=== PATIENT | female | born 2000 | race Caucasian/White ===

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

== ENCOUNTER 2022-11-23 20:25 | Observation (INO) | payer OTHER, SELFPAY ==
--- NOTE | ~2022-11-23 | US_ITS ---
EXAMINATION: US pelvic complete DATE: 11/23/2022 22:55 INDICATION: Pelvic pain. TECHNIQUE: Multiple transabdominal sonographic images of the pelvis were obtained. COMPARISON: Ultrasound 08/25/2021 FINDINGS: The uterus measures 7.4 x 3.5 x 4.5 cm. There is no free fluid in the pelvis. The endometrial complex measures 6 mm in thickness. There is an intrauterine device in expected position. The right ovary me asures 3.1 x 3.3 x 3.6 cm. The left ovary measures 3.1 x 2.2 x 2.9 cm. There is normal vascular flow in the ovaries. IMPRESSION: 1. Intrauterine device in expected position. Reviewed, dictated and finalized at location E.
--- NOTE | ~2022-11-23 | US_ITS ---
Pelvic ultrasound. Clinical History: Ovarian cyst, history of pneumoperitoneum Technique: Realtime transabdominal and transvaginal scanning of the pelvis was performed. Color flow Doppler and Doppler spectral analysis were performed. Findings: The uterus is anteverted. The endometrial stripe has a thickness of 5 mm. IUD is in satisf actory position. No focal mass is identified. The right ovary measures 2.9 x 4.7 x 2.8 cm. Suggestion of heterogeneous area within the right ovary measuring approximately 2 cm in diameter. The left ovary measures 3.0 x 1.8 x 2.3 cm. No significant left ovarian or adnexal mass is seen. Vascular flow present in both ovaries on Doppler spectral analysis. There is moderate amount of mildly complex free fluid in the pelvis. Impression: Moderate amount of mildly complex free fluid in the pelvis, consistent with hemoperitoneum as seen on CT performed earlier today. 2 cm heterogeneous area within the right ovary. This could reflect a small dermoid or perhaps remnant s of a collapsed/ruptured cyst. IUD in place. Reviewed, dictated and finalized at location . Impression: Moderate amount of mildly complex free fluid in the pelvis, consistent with hem operitoneum as seen on CT performed earlier today. 2 cm heterogeneous area within the right ovary. This could reflect a small derm oid or perhaps remnants of a collapsed/ruptured cyst. IUD in place.
--- NOTE | ~2022-11-23 | CT_ITS ---
CT of the Abdomen and Pelvis: Indication: Abdominal pain Technique: 2.5 mm axial scans were obtained through the abdomen and pelvis following intravenous adm inistration of 100 cc of Omnipaque 350. Dose reduction technique was used on this scan by utilizing a utomated exposure control and iterative reconstruction technique. The dose-length product (DLP) was 6 15.93 mGy-cm. Findings: Scans through the lung bases are unremarkable. The liver, spleen, pancreas, gallbladder, adrenals and kidneys are within normal limits. No evidence of aortic aneurysm. No lymphadenopathy. No bowel obstruction or bowel wall thickening. There is no evidence to suggest acute appendicitis. Images through the pelvis were performed. Urinary bladder unremarkable. IUD in place. There is hemorr hagic ascites in the pelvis with small amount extending into the paracolic gutters and into the infra hepatic region. Impression: Hemorrhagic ascites in the pelvis, with mild extension into the paracolic gutters and infrahepatic re gion. Findings could reflect ruptured hemorrhagic ovarian cyst. IUD in place. Reviewed, dictated and finalized at location . Impression: Hemorrhagic ascites in the pelvis, with mild extension into the paracolic gutte rs and infrahepatic region. Findings could reflect ruptured hemorrhagic ovarian cyst. IUD in place.
[2022-11-23 20:27] VITALS: BP 146/94; PULSE 114; RESP 18; TEMP 36.7; O2SAT 100
[2022-11-23 23:45] LABS: Basophils Percent Auto 0.3 % (0.2-1.2); Eosinophils Percent Auto 0.4 % (0-4.4); Hematocrit 38.8 % (37.0-47.0); Hemoglobin 13.2 g/dL (12.0-15.0); Immature Granulocyte Absolute 0.03 K/mm3 (0.00-0.031); Immature Granulocyte Percent A 0.3 % (0-0.5); Lymphocytes Absolute Auto 2.03 K/mm3 (0.9-3.2); Lymphocytes Percent Auto 18.2 % (18.3-44.2); Mean Corpuscular Hemoglobin 28.8 pg (26-34); Mean Corpuscular Volume 84.5 fl (80-100); Mean Platelet Volume 9.6 fl (7.4-10.4); Monocytes Absolute Auto 0.6 K/mm3 (0.1-0.6); Monocytes Percent Auto 5.6 % (2.6-8.5); Neutrophils Absolute Auto 8.4 K/mm3 (1.3-6.7); Neutrophils Percent Auto 75.2 % (45.5-73.1); Platelet Count Result 247 k/mm3 (150-375); Red Blood Count 4.59 M/mm3 (4.2-5.4); Red Cell Distribution Width 12.2 % (11.5-14.5); White Blood Count 11.1 K/mm3 (4.5-10.0)
[2022-11-23 23:53] LABS: Add Urine Microscopic? YES; Appearance Urine Clear (Clear); Bacteria Urine 1+ /hpf; Bilirubin Urine Negative (Negative); Blood Urine Negative (Negative); Color Urine Yellow (Yellow); Glucose Urine UA Negative (Negative); Ketones Urine Negative (Negative); Leukocyte Esterase Ur Trace LEU/UL (Negative); Nitrate Urine Negative (Negative); Protein Urine Negative (Negative); RBC Urine 0-2 /hpf (0-2); Specific Grav Ur 1.005 (1.001-1.035); Squamous Epithelial Cell Urine None seen /hpf (Few); Urobilinogen Urine 0.2 mg/dL (<2.0); WBC Urine 0-5 /hpf; pH Urine 5.5 (5.0-9.0)
[2022-11-23 23:54] LABS: Alanine Aminotransferase 37 U/L (6-35); Albumin Level 4.3 g/dL (3.5-5.1); Alkaline Phosphatase 96 U/L (38-126); Anion Gap 5 mmol/L (8-16); Aspartate Amino Transferase 33 U/L (14-36); Bilirubin,Total 0.4 mg/dL (0.2-1.3); Blood Urea Nitrogen 9 mg/dL (7-17); Calcium 9.1 mg/dL (8.4-10.2); Carbon Dioxide 25 mmol/L (22-30); Chloride 105 mmol/L (98-107); Estimated CRCL calculation 109 ml/min; Estimated Glomerular Filt Rate > 60; Glucose 97 mg/dL (65-110); Lipase 39 U/L (23-300); Potassium 3.7 mmol/L (3.4-5.0); Sodium 135 mmol/L (137-145)
[2022-11-24] VITALS (73 sets, daily range): BP systolic 104–141; BP diastolic 43–84; PULSE 67–115; RESP 14–20; TEMP 36.4–36.8; O2SAT 86–100; BMI 31.1; BMI 33.0
[2022-11-24] MEDS: MORPHINE SULFATE (*CRX) 4 MG/ML INJ IV PUSH ×2 (00:43→04:05)
[2022-11-24] MEDS: ONDANSETRON INJ 4 MG/2 ML VIAL IV PUSH (00:43)
--- NOTE | 2022-11-24 01:12 | ED.ABDPAIN ---
HPI - Abdominal Pain General Chief Complaint: Abdominal Pain <MISHA Arredondo Last Filed: 11/24/22 03:06> Stated Complaint: abd pain after intercourse <MISHA Arredondo Last Filed: 11/24/22 03:06> Time Seen by Provider: 11/23/22 22:39 <MISHA Arredondo Last Filed: 11/24/22 03:06> Source: patient <MISHA Arredondo Filed: 11/24/22 03:06> Mode of arrival: ambulatory <MISHA Arredondo Filed: 11/24/22 03:06> Limitations: no limitations <MISHA Arredondo Filed: 11/24/22 03:06> History of Present Illness HPI narrative: Patient is a 22-year-old female who presents the ED with report of lower abdominal pain. Patient reports she had sexual intercourse with her significant other this evening. She experienced discomfort during intercourse, but complained of significant pain throughout her lower abdomen afterwards. She denies previous issues with dyspareunia. She currently has an IUD in place and is concerned it may have dislodged. She tried taking ibuprofen at home without relief. She also reports some nausea, denies vomiting. Denies any abnormal vaginal bleeding. Denies urinary symptoms. <MISHA Arredondo Last Filed: 11/24/22 03:06> Related Data Home Medications: Home Medications Medication Instructions Recorded Confirmed levocetirizine [Xyzal] PO PRN 09/09/21 levonorgestrel 14 mcg/24 hrs (3 1 device intrauterine ONCE 10/28/21 yrs) 13.5 mg intrauterine device (Melva) <MISHA Arredondo Last Filed: 11/24/22 03:06> Allergies/Adverse Reactions: Allergies Allergy/AdvReac Type Severity Reaction Status Date / Time No Known Allergies Allergy Verified 11/23/22 22:18 <MISHA Arredondo Last Filed: 11/24/22 03:06> Review of Systems Review of Systems: CONSTITUTIONAL: Denies fever, chills, or sweats. CARDIOVASCULAR: Denies chest pain. RESPIRATORY: Denies dyspnea. GASTROINTESTINAL: See HPI. GENITOURINARY: See HPI. MUSCULOSKELETAL: Denies back pain, joint pain, or myalgia. <Tana Butterfield PA-C - Last Filed: 11/24/22 03:06> All systems reviewed & are unremarkable except as noted in HPI and below <Tana Butterfield PA-C - Last Filed: 11/24/22 03:06> [facility] Past Medical History Medical History: Medical History Encounter for IUD insertion melva 03/2020 <Tana Butterfield PA-C - Last Filed: 11/24/22 03:06> Family History Family History: Family History (Updated 09/09/21 @ 13:13 by Marlin Ramirez, [facility]) Mother Melanoma Father Heart disease Grandparent Carcinoma of colon <Tana Butterfield PA-C - Last Filed: 11/24/22 03:06> Social History Social History: Social History Smoking status: Never smoker Alcohol intake: never Substance use: never <Tana Butterfield PA-C - Last Filed: 11/24/22 03:06> Exam Narrative: GENERAL: Well appearing, obese with BMI of 32.9, non-toxic, in no acute distress. HEAD: Normocephalic, atraumatic. NECK: Supple. No adenopathy, no masses. RESPIRATORY: Airway patent, respirations nonlabored. Clear to auscultation bilaterally, no rales, rhonchi, wheezing. CARDIOVASCULAR: Regular rate and rhythm without murmurs, rubs, or gallops. Peripheral pulses 2+ and equal bilaterally. ABDOMINAL: Soft, diffuse tenderness throughout suprapubic region and right lower abdomen, nondistended, no hepatosplenomegaly. Normoactive BS. MUSCULOSKELETAL: Moves all extremities. Strength/ROM intact without gross deformities. SKIN: Warm, dry, normal color. No rashes. NEURO: A&O X3. Speech clear. Cranial nerves II-XII grossly intact. Steady gait. No ataxic movements. PSYCHIATRIC: Anxious, tearful. Normal interaction. <Tana Butterfield PA-C - Last Filed: 11/24/22
[2022-11-24] MEDS: HYDROmorphone HCL INJ (*CRX) 1 MG/ML SYR IV PUSH ×2 (05:08→14:56)
[2022-11-24 05:41] LABS: Hematocrit 36.8 % (37.0-47.0); Hemoglobin 12.4 g/dL (12.0-15.0)
--- NOTE | 2022-11-24 06:52 | OBADM ---
This patient, Sina Pace, admitted to the OB room 112 for observation. Patient/family oriented to hospital policies and general routines including ID bracelet, bed and alarms, visiting hours, pain management, procedures, bathroom and other care routines, personal items, smoking policy, room service/diet, and visiting hours. Patient/Family are encouraged to report perceived risks to care and to ask questions if they do not understand what they are told or what they should do.
--- NOTE | 2022-11-24 07:05 | PC.NURSE ---
Dr. Connors in to see and assess pt. Discussed wanting to watch pt's H&H and VS to monitor for abdominal bleeding and determine need for surgery. Additional orders received.
[2022-11-24] MEDS: SODIUM CHLORIDE 0.9% IV 1,000 ML 125 ML IV CONT ×2 (07:20→16:30)
[2022-11-24] MEDS: HYDROmorphone HCL INJ (*CRX) 1 MG/ML SYR 0.5 MG IV PUSH ×4 (07:54→19:30)
--- NOTE | 2022-11-24 07:54 | PC.NURSE ---
Pt medicated prior to being walked to bathroom. Pt unable to relax enough to void. Pt to U/S per wheelchair.
--- NOTE | 2022-11-24 07:58 | PM.IMHP ---
H&P: HPI History of Present Illness Date/Time: 11/24/22 07:58 Chief Complaint: abdominal pain Narrative: Sina is a 22yo G0, who presented to the ER with acute abdominal pain after intercourse last night. She has a Bina IUD in place since 03/2020. She thought the pain was from her IUD being displaced. She had an US which showed the IUD in the correct location and no cysts. She was monitored in the ED and suddenly developed sharp abdominal pain. CT scan was performed and showed a significant amount of hemoperitoneum concerning for hemorrhagic cyst. Her vitals remained stable; H/H dropped approximately 1 point in 4 hours. She was admitted for pain control and possible surgery. This morning she reports the pain is still severe; 6/10 (had dilaudid about 2 hours ago). No vaginal bleeding, discharge. No blood in stool/urine. If she needs surgery, she would like her IUD removed as well. Review of Systems Constitutional: Constitutional: Denies chills, Denies fever(s) and Denies headache(s) Eyes: Eyes: Denies change in vision ENT: Denies dizziness and Denies headache(s) Cardiovascular: Cardiovascular: Denies chest pain, Denies dyspnea and Reports orthopnea (from pain) Respiratory: Respiratory: Denies cough and Denies dyspnea Gastrointestinal: Gastrointestinal: Reports abdominal pain, Denies change in stool character and Reports constipation Genitourinary: Genitourinary: Denies abnormal menses, Reports pelvic pain, Denies vaginal discharge, Denies vaginal odor and Denies vaginal pruritus Neurologic: Denies dizziness and Denies headache(s) Psychiatric: Psychiatric: Denies anxiety and Denies depression [facility] Past Medical History Medical History Encounter for IUD insertion bina 03/2020 Family History Family History Mother Melanoma Father Heart disease Grandparent Carcinoma of colon Social History Social History Smoking status: Never smoker Alcohol intake: never Substance use: never Lack of Transportation: No Lack of Food: Never True Current Housing: I Have Housing Concerned About Future Housing: No Difficulty Paying Gas/Electric Bills: No Difficulty Paying for Meds: No Currently Unemployed: No Education: High School Diploma/GED Difficulty w/ Childcare or Family Care: No Spiritual care concerns: No Meds Home Medications and Allergies Home Medications Medication Instructions Recorded Confirmed Type diphenhydramine HCl 25 mg capsule 25 mg PO HS PRN Sleep 11/24/22 11/24/22 History (Benadryl) ibuprofen 600 mg tablet 600 mg PO Q6H PRN Pain 11/24/22 11/24/22 History Allergies Allergy/AdvReac Type Severity Reaction Status Date / Time No Known Allergies Allergy Verified 11/23/22 22:18 Vital Signs Vital Signs - 24 hr 11/23/22 20:27 11/24/22 02:26 11/24/22 05:38 Temperature 98.1 F Pulse Rate 114 H 90 67 Respiratory Rate 18 16 15 Blood Pressure 146/94 H 127/65 117/84 Pulse Oximetry 100 99 98 Oxygen Delivery Room Air 11/24/22 06:53 11/24/22 06:55 Temperature Pulse Rate 88 Respiratory Rate Blood Pressure 115/78 Pulse Oximetry 100 Oxygen Delivery Exam Const: General: cooperative, healthy appearing, acute distress mild and uncomfortable Orientation/consciousness: patient oriented x3 Resp: Effort & Inspection: normal respiratory effort Auscultation: clear to auscultation bilaterally Cardio: Rate: regular rate GI: Inspection: distended GI Palp: Yes abdominal tenderness, Yes Firmness to palpation present (GI) (/taut) and Yes Guarding due to palpation present (GI) (voluntary) Auscultation: normal bowel sounds Skin: General skin exam: normal color Neuro: General: patient oriented x3 Extrem: General: normal to inspection Psych: Appearance: grossly normal Affect: normal a
--- NOTE | 2022-11-24 08:40 | PC.NURSE ---
Pt back from U/S. IV fluids resumed. Pt states she voided while in U/S department.
[2022-11-24 09:58] LABS: Hematocrit 35.3 % (37.0-47.0); Hemoglobin 11.9 g/dL (12.0-15.0)
--- NOTE | 2022-11-24 15:07 | WPDHPUPDATE1 ---
History and Physical Update Update Date/Time: 11/24/22 15:07 History and Physical has been reviewed, including an updated exam of the patient. There are NO changes in the patient's condition. Risks, benefits, and alternatives have been discussed and questions answered. Patient agrees to proceed with ?diagnostic laparoscopic, evacuation of hemoperitoneum, possible cystectomy and IUD removal.
--- NOTE | 2022-11-24 16:30 | PC.NURSE ---
Changed to anesthesia tubing when new bag of NS hung. Sequential hose applied to legs in anticipation of surgery.
--- NOTE | 2022-11-24 16:45 | PC.NURSE ---
Pt assisted up to void and then onto stretcher to pre-op area. Pt's father and boyfriend went with pt. Family has her jewelry.
[2022-11-24] MEDS: LACTATED RINGERS 1,000 ML 30 ML IV CONT ×2 (17:00→18:52)
--- NOTE | 2022-11-24 17:22 | WPDANESEPPF ---
Anes - Initial Pre Proc Eval Procedure: Operation Date: 11/24/22 16:00 Proposed Procedures p Diagnostic Laparoscopy, Evacuation Hemoperitoneum,Possible Unilateral Ovarian Cystectomy - Estella Connors MD Date/Time: 11/24/22 17:22 Surgeon: Estella Connors MD Pre Op Diagnosis: Hemoperitoneum/Ruptured Ovarian Cyst Patient Data Age: 22 Gender: F Height: 1.57 m Weight: 82 kg Last Vital Signs Temp 36.8 C 11/24/22 12:04 Pulse 96 11/24/22 16:39 Resp 18 11/24/22 12:04 BP 125/56 L 11/24/22 16:39 Pulse Ox 99 11/24/22 16:39 O2 Del Method Room Air 11/24/22 06:52 Allergies Allergy/AdvReac Type Severity Reaction Status Date / Time No Known Allergies Allergy Verified 11/23/22 22:18 Home Medications Medication Instructions Recorded Confirmed Type diphenhydramine HCl 25 mg capsule 25 mg PO HS PRN Sleep 11/24/22 11/24/22 History (Benadryl) ibuprofen 600 mg tablet 600 mg PO Q6H PRN Pain 11/24/22 11/24/22 History Laboratory Tests 11/23/22 11/24/22 11/24/22 23:38 05:32 09:44 WBC 11.1 H K/mm3 (4.5-10.0) RBC 4.59 M/mm3 (4.2-5.4) Hgb 13.2 g/dL 12.4 g/dL 11.9 L g/dL (12.0-15.0) (12.0-15.0) (12.0-15.0) Hct 38.8 % 36.8 L % 35.3 L % (37.0-47.0) (37.0-47.0) (37.0-47.0) MCV 84.5 fl (80-100) MCH 28.8 pg (26-34) MCHC 34.0 g/dl (32-36) RDW 12.2 % (11.5-14.5) Plt Count 247 k/mm3 (150-375) MPV 9.6 fl (7.4-10.4) Immature Gran % (Auto) 0.3 % (0-0.5) Neut % (Auto) 75.2 H % (45.5-73.1) Lymph % (Auto) 18.2 L % (18.3-44.2) [place] % (Auto) 5.6 % (2.6-8.5) Eos % (Auto) 0.4 % (0-4.4) Baso % (Auto) 0.3 % (0.2-1.2) Lymph # (Auto) 2.03 K/mm3 (0.9-3.2) [place] # (Auto) 0.6 K/mm3 (0.1-0.6) Eos # (Auto) 0.0 K/mm3 (0-0.3) Baso # (Auto) 0.0 K/mm3 (0.0-0.1) Abs Immat Gran (auto) 0.03 K/mm3 (0.00-0.031) Absolute Neuts (auto) 8.4 H K/mm3 (1.3-6.7) Absolute Nucleated RBC 0.0 K/mm3 (0.0-0.012) Nucleated RBC % 0.0 % (0.0-0.2) Sodium 135 L mmol/L (137-145) Potassium 3.7 mmol/L (3.4-5.0) Chloride 105 mmol/L (98-107) Carbon Dioxide 25 mmol/L (22-30) Anion Gap 5 L mmol/L (8-16) BUN 9 mg/dL (7-17) Creatinine 0.70 mg/dL (0.7-1.0) Estim Creat Clear Calc 109 ml/min Estimated GFR > 60 (59 - ) Glucose 97 mg/dL (65-110) Calcium 9.1 mg/dL (8.4-10.2) Total Bilirubin 0.4 mg/dL (0.2-1.3) AST 33 U/L (14-36) ALT 37 H U/L (6-35) Alkaline Phosphatase 96 U/L (38-126) Total Protein 7.0 g/dL (6.3-8.2) Albumin 4.3 g/dL (3.5-5.1) Lipase 39 U/L (23-300) Urine Color Yellow (Yellow) Urine Appearance Clear (Clear) Urine pH 5.5 (5.0-9.0) Ur Specific [place] 1.005 (1.001-1.035) Urine Protein Negative mg/dL (Negative) Urine Glucose (UA) Negative mg/dL (Negative) Urine Ketones Negative mg/dL (Negative) Ur Blood (Man) Negative (Negative) Urine Nitrate Negative (Negative) Urine Bilirubin Negative (Negative) Urine Urobilinogen 0.2 mg/dL (<2.0) Leukocyte Esterase Rfl Trace H SHRUTHI/UL (Negative) Urine RBC 0-2 /hpf (0-2) Urine WBC 0-5 /hpf Ur Squamous Epith Cells None seen /hpf (Few) Urine Bacteria 1+ H /hpf Urine Casts 3-5 Blood Type O Positive Antibody Screen Negative Patient hx anesthesia problems: none Family hx anesthesia problems: none Results Review: All pre-operative results and documents have been reviewed as part of the pre-o
--- NOTE | 2022-11-24 18:50 | W.PM.PROC2 ---
Procedure Note - Detailed Date of Procedure 11/24/22 Pre-op Diagnosis Hemoperitoneum/Ruptured Ovarian Cyst Post-op Diagnosis Same Procedure Performed Diagnostic laparoscopy, evacuation of hemoperitoneum, IUD removal Surgeon Estella Connors MD Food Service Director Manjeet Anesthesia General and Local (20cc of 0.25% marcaine w/ epi) Findings IUD strings visualized and IUD removed using ring forceps without issue. IUD was examined by OR staff and found to be removed in whole and was discarded. Diagnostic laparoscopy w/ significant amount of hemoperitoneum, 1000cc removed in total. Uterus, bilateral fallopian tubes and left ovary found to be normal. Right ovary with remnants of cyst; no active bleeding noted. Description of Procedure Sina was taken to the operating room where she was placed under general endotracheal anesthesia without complications. She was then prepped and draped in the usual sterile fashion in the dorsal lithotomy position with her legs in low Rogerio stirrups and her arms tucked at her side with a strap over her chest. A time-out was performed and no preoperative antibiotics were indicated. My attention was turned down below where her bladder was drained via straight catheterization. A bivalve speculum was then placed within the vagina where the cervix was easily visualized. The IUD strings were easily identified and grasped with ring forceps. The IUD was removed in whole (examined by OR team) and discarded. The anterior lip of the cervix was grasped with a single-tooth tenaculum, the uterus was sounded to 8cm, and a diagnostic uterine manipulator was placed without complications. My gloves were changed and my attention was turned to her abdomen. An umbilical incision was made, and a 5 mm trocar was placed under direct visualization without complications. Once intra-abdominal placement was confirmed (significant hemoperitoneum was immediately noted), the abdomen was insufflated with carbon dioxide gas. She was then placed in Trendelenburg and a 10 mm port was placed in the left lower quadrant under direct visualization without complications. The above findings were noted. The hemoperitoneum was removed using the large suction device. The pelvis and upper abdomen were irrigated and all fluid and blood was removed from the abdomen. The right ovary was examined in detail; the remnant of cyst was noted, but no active bleeding was noted and decision was made to not proceed with cystectomy. Good hemostasis was noted. All instruments were removed from the abdomen. The 10mm fascial incision was reapproximated using 0-Vicryl figure of eight stitch and no loss of gas was noted. The insufflation was released and the other trocar was removed. The two laparoscopic incision sites were reapproximated using 4-0 Monocryl and covered with Dermabond. The incisions were then infiltrated using 0.25% Marcaine with epi. The uterine manipulator was removed. Sponge, lap, instrument, and needle counts were correct at the end of the procedure. Patient was awoken from general anesthesia and taken to recovery with plans of overnight stay with plans of discharge home first thing in the morning. Estimated Blood Loss 10 (+ 1000cc of hemoperitoneum ) IV Fluids 1,000 Urine Output 100 Pathology None sent Complications No immediate complications Condition Stable Disposition Floor [facility] Billing Surgery - Charge Forward: Surgery Billing
[2022-11-24] MEDS: fentaNYL CITRATE INJ (*CRX) 100 MCG/2 ML VIAL 25 MCG IV PUSH ×8 (19:10→19:24)
[2022-11-24] MEDS: KETOROLAC 30 MG/ML VIAL (*BKC) IV PUSH (22:09)
[2022-11-25] VITALS (31 sets, daily range): BP systolic 95–109; BP diastolic 47–66; PULSE 67–103; RESP 16; TEMP 36.8–37.1; O2SAT 97–100
--- NOTE | 2022-11-25 00:17 | PC.NURSE ---
Pt sleeping O2 remaining at 98%
[2022-11-25] MEDS: KETOROLAC 30 MG/ML VIAL (*BKC) IV PUSH (04:05)
[2022-11-25 04:14] LABS: Basophils Percent Auto 0.1 % (0.2-1.2); Hematocrit 29.7 % (37.0-47.0); Hemoglobin 10.3 g/dL (12.0-15.0); Immature Granulocyte Absolute 0.02 K/mm3 (0.00-0.031); Immature Granulocyte Percent A 0.3 % (0-0.5); Lymphocytes Absolute Auto 0.68 K/mm3 (0.9-3.2); Lymphocytes Percent Auto 9.8 % (18.3-44.2); Mean Corpuscular HGB Conc 34.7 g/dl (32-36); Mean Corpuscular Hemoglobin 29.3 pg (26-34); Mean Corpuscular Volume 84.6 fl (80-100); Monocytes Absolute Auto 0.3 K/mm3 (0.1-0.6); Monocytes Percent Auto 3.9 % (2.6-8.5); Neutrophils Percent Auto 85.9 % (45.5-73.1); Platelet Count Result 190 k/mm3 (150-375); Red Blood Count 3.51 M/mm3 (4.2-5.4); Red Cell Distribution Width 12.2 % (11.5-14.5)
[2022-11-25 04:28] LABS: Anion Gap 4 mmol/L (8-16); Blood Urea Nitrogen 7 mg/dL (7-17); Calcium 8.5 mg/dL (8.4-10.2); Carbon Dioxide 23 mmol/L (22-30); Chloride 107 mmol/L (98-107); Estimated CRCL calculation 126 ml/min; Estimated Glomerular Filt Rate > 60; Glucose 110 mg/dL (65-110); Potassium 4.2 mmol/L (3.4-5.0); Sodium 134 mmol/L (137-145)
--- NOTE | 2022-11-25 07:17 | PM.GYNPNOP ---
MUSIC LEADER - A/P Assessment and plan (1) Hemorrhagic cyst: Status: Acute (2) Hemoperitoneum: Code(s): K66.1 - Hemoperitoneum Status: Acute Postoperative Procedures: Procedures Operation Date: 11/24/22 16:00 Actual Procedure Side Surgeon p Diagnostic Laparoscopy, Evacuation Hemoperitoneum, Removal of Intrauterine Device Not Applicable Estella Connors MD Postoperative day: 1 Postoperative status: doing well Postoperative plan: routine post-op care and discharge (today; pelvic rest, no heavy lifting x 2wks. ) Time Spent With Patient Time: Total time spent is greater than 50% in coordination of care (as documented) at patient's floor/unit and/or counseling patient: Time with patient: less than 15 minutes MUSIC LEADER- PN:Subj Post-Op Subjective Date/time seen: 11/25/22 07:17 Interval history: POD#1 Sina reports doing great today. No issues overnight. Her pain has been controlled overnight with toradol. She has tolerated liquids; plans to order breakfast. She denies any vaginal bleeding. She has voided. She has passed flatus. She has ambulated and denies any symptoms of anemia. Review of Systems Review of Systems: All systems reviewed & are unremarkable except as noted in HPI and below (HPI) Constitutional: Constitutional: Denies chills, Denies fever(s) and Denies headache(s) Eyes: Eyes: Denies change in vision ENT: Denies dizziness and Denies headache(s) Cardiovascular: Cardiovascular: Denies chest pain and Denies rapid heart rate Respiratory: Respiratory: Denies cough Genitourinary: Genitourinary: Denies abnormal vaginal bleeding Neurologic: Denies dizziness and Denies headache(s) Exam Const: General: cooperative, comfortable, no acute distress and obese Orientation/consciousness: patient oriented x3 Resp: Effort & Inspection: normal respiratory effort Auscultation: clear to auscultation bilaterally Cardio: Rate: regular rate GI: Inspection: normal to inspection and incision (2 LSC incisions intact/covered w/ dermabond) GI Palp: Yes abdominal tenderness (appropriate) and Yes Soft to palpation Auscultation: normal bowel sounds : Other: normal bleeding on pad Skin: General skin exam: normal color Neuro: General: patient oriented x3 Psych: Appearance: grossly normal Affect: normal affect Attitude: cooperative MUSIC LEADER - PN: Obj Data Vital Signs Vital Signs: Vital Signs - 24 hr 11/24/22 08:41 11/24/22 08:46 11/24/22 08:51 Temperature Pulse Rate 93 Respiratory Rate Blood Pressure 104/56 L Pulse Oximetry 99 100 99 Oxygen Delivery Oxygen Flow Rate 11/24/22 08:56 11/24/22 09:01 11/24/22 09:06 Temperature Pulse Rate Respiratory Rate Blood Pressure Pulse Oximetry 100 100 100 Oxygen Delivery Oxygen Flow Rate 11/24/22 12:03 11/24/22 12:04 11/24/22 12:11 Temperature Pulse Rate 93 Respiratory Rate Blood Pressure 114/66 Pulse Oximetry 100 100 Oxygen Delivery Oxygen Flow Rate 11/24/22 14:39 11/24/22 16:39 11/24/22 20:08 Temperature Pulse Rate 81 96 Respiratory Rate Blood Pressure 110/58 L 125/56 L Pulse Oximetry 100 99 99 Oxygen Delivery Oxygen Flow Rate 11/24/22 20:09 11/24/22 20:18 11/24/22 20:23 Temperature Pulse Rate 84 Respiratory Rate Blood Pressure 116/65 Pulse Oximetry 100 100 Oxygen Delivery Oxygen Flow Rate 11/24/22 20:28 11/24/22 20:30 11/24/22 20:33 Temperature Pulse Rate 84 Respiratory Rate Blood Pressure 113/56 L Pulse Oximetry 100 100 Oxygen Delivery Oxygen Flow Rate 11/24/22 20:38 11/24/22 20:43 11/24/22 20:45 Temperature Pulse Rate 115 H Respiratory Rate Blood Pressure 125/43 L Pulse Oximetry 100 100 Oxygen Delivery Oxygen Flow Rate 11/24/22 20:48 11/24/22 20:53 11/24/22 20:58 Temperature Pulse Rate Respiratory Rate Blood Pressure Pulse Oximetry 100 100 100 Oxygen
--- NOTE | 2022-11-26 14:14 | PM.DS ---
DS: Admitting Diagnosis Discharge Date 11/25/22 Admitting Diagnosis Abdominal pain Hemorrhagic cyst Hemoperitoneum DS: Discharge Diagnosis Discharge Diagnosis (1) Hemorrhagic cyst: Status: Acute (2) Hemoperitoneum: Code(s): K66.1 - Hemoperitoneum Status: Acute (3) S/P laparoscopic surgery: Code(s): Z98.890 - Other specified postprocedural states Status: Acute (4) Encounter for IUD removal: Code(s): Z30.432 - Encounter for removal of intrauterine contraceptive device Status: Acute DS: Summary Hospital Course Hospital Course: Sina presented to the ER for acute abdominal pain after intercourse. She assumed that the pain was from her IUD and concerned it could have moved. [employer] US was normal, but kept for pain control. Her abdominal pain severely worsened and CT scan showed hemoperitoneum. She was kept inpatient for pain control and serial H/H. [employer] US was repeat and did show a right ovarian cyst and significant amount of free fluid. Her vital signs and H/H remained stable, but her pain was severe and continued to require multiple doses of IV Dilaudid. She was counseled and on recommendation for diagnostic laparoscopic, removal of hemoperitoneum, possible cystectomy. She agreed to surgery, but also wanted to have her IUD removed. Surgery was performed without issue; diagnostic laparoscopy with evacuation of hemoperitoneum and IUD removal. She was kept overnight and her pain resolved; only needed toradol. By the following morning, she was tolerating regular diet, voiding, and ambulating without symptoms of anemia. Vitals remained stable and blood work was once again repeated and appropriate. She was discharged home with strict lifting precautions, pelvic rest, and to follow up in clinic. Status at Discharge Functional status at discharge: independent ambulation Overall status at discharge: patient is back to baseline Time Spent with Patient Time attestation: Total time spent providing and/or coordinating discharge services: Time spent: Less than 30 minutes Exam Const: General: cooperative, healthy appearing, comfortable and no acute distress Resp: Effort & Inspection: normal respiratory effort Auscultation: clear to auscultation bilaterally Cardio: Rate: regular rate GI: Inspection: incision (x2) GI Palp: Yes Soft to palpation and Yes Tenderness to palpation present (GI) (appropriate) Auscultation: normal bowel sounds Skin: General skin exam: normal color Neuro: General: patient oriented x3 Extrem: General: normal to inspection Psych: Appearance: grossly normal Affect: normal affect Attitude: cooperative Discharge Plan Discharge Attending physician on discharge: Estella Connors Consulting providers: Tana Butterfield; Kervin Juan; Dagoberto Pichardo V.; Kelvin Abel Discharging Clinician: Estella Connors Anticipated Discharge Date/Time: 11/25/22 08:00 Patient Disposition: Home, Self-Care Activity: may shower and pelvic rest Diet: regular Discharge Instructions: Pelvic rest (nothing in the vagina) x 2wks. No driving x 1wk. Can shower. No heavy lifting (>15lbs) x 2wks. Patient Instructions: Antibiotic Form Stand Alone Forms: General Discharge Information Follow-up/Referrals: Estella Connors MD [Physician] - 2 Weeks Manjeet Serrano MD [Primary Care Provider] - Discharge Medications: New ibuprofen 800 mg tablet 800 mg PO TID Qty: 30 0RF docusate sodium [Colace] 100 mg capsule 100 mg PO BID Qty: 60 0RF hydrocodone-acetaminophen 5-325 mg tablet 1 tablet PO Q4H PRN (Reason: pain) Qty: 14 0RF Discontinued diphenhydramine HCl [Benadryl] 25 mg Capsule 25 mg PO HS PRN (Reason: Sleep) ibuprofen [Motrin] 600 mg Tablet 600 mg PO Q6H PRN (Reason: Pain) Date of admission: 11/24/22 05:04 Primary Care Provider: Manjeet Serrano Admitting Provider: Estella Connors Attending physicia
== END 2022-11-25 10:45 | disposition home or self-care (01) ==
LOC: ANHED 11-24 05:07 → ANHOBPP 11-24 05:43
PROVIDERS: Admitting Provider Obstetrics & Gynecology; Emergency Provider Emergency Medicine; PCP Pediatrics; Visit Provider Obstetrics & Gynecology
PROC: (CPT 49320; principal; 2022-11-24 16:00)
DX: K66.1 Hemoperitoneum (principal); N94.10 Unspecified dyspareunia; N83.201 Unspecified ovarian cyst, right side; Z97.5 Presence of (intrauterine) contraceptive device; R00.0 Tachycardia, unspecified; D72.829 Elevated white blood cell count, unspecified; E66.9 Obesity, unspecified; Z68.33 Body mass index [BMI] 33.0-33.9, adult; Z79.1 Long term (current) use of non-steroidal anti-inflammatories (NSAID); Z79.899 Other long term (current) drug therapy
CPT/HCPCS: 49322; 58301; 36415; 74177; 76830; 76856; 80048; 80053; 81001; 81025; 83690; 85014; 85018; 85025; 86850; 86900; 86901; 87086; 96361; 96374; 96375; 96376; 99285; G0378; J0690; J1100; J1170; J1885; J2250; J2270; J2405; J2704; J2710; J3010; J7030; J7120; Q9967